=== PATIENT | female | born 1975 | race Caucasian/White ===

== ENCOUNTER 2022-06-03 13:05 | Emergency (ER) | payer BC, SELFPAY ==
[2022-06-03 13:19] VITALS: BP 130/78; PULSE 99; RESP 18; TEMP 37.2; O2SAT 99; BMI 28.3
--- NOTE | 2022-06-03 13:40 | XR_ITS ---
Patient: ERICK GRADY Facility:?[facility] Patient ID:?[id number] Site Patient ID:?[id number]. Site :?[id number] Study:?XRay-Extremity Right GREAT TOE-06/03/2022 1:51:58 PM Ordering Physician:Hany White Final Report: INDICATION: Crush injury of right great toe. Log fell on it. TECHNIQUE: Three views of the right great toe COMPARISON: None FINDINGS: Bones: There is a somewhat irregular appearance of the tuft of the 1st distal phalanx, however no discrete fracture is identified. Alignment is normal. Joint spaces: Unremarkable. Soft tissues: Unremarkable. IMPRESSION: No definite fractures seen. Dictated by Jake Krueger MD @ 06/03/2022 2:20:23 PM Signed by:?Jake Krueger MD @06/03/2022 2:20:23 PM (Electronic Signature)
--- NOTE | 2022-06-03 13:45 | ED_ITS ---
HPI - General Adult General Date Seen: 06/03/22 Chief complaint: Extremity Pain/Injury, Lower Stated complaint: Smashed RT foot Time Seen by Provider: 06/03/22 13:30 Source: patient History of Present Illness HPI narrative: Patient is a 47-year-old woman seen today for pain in her right great toe. She says she dropped a log on it yesterday and thought she could tough it out but it has continued to hurt. The toenail has turned dark purple and is throbbing. She is able to walk on her heel but is not able to put any pressure on the toe. The toe itself is a little bit reddish and slightly swollen. Foot otherwise is non painful. No other injuries or complaints. Related Data Home Medications Medication Instructions Recorded Confirmed paroxetine HCl 20 mg tablet 20 mg PO DAILY 06/03/22 06/03/22 Allergies Allergy/AdvReac Type Severity Reaction Status Date / Time No Known Drug Allergies Allergy Verified 06/03/22 13:22 [facility] Medical History (Updated 06/03/22 @ 14:13 by Gudelia Haas RN) No significant past medical history Social History Smoking Status: Never smoker How often do you have a drink containing alcohol: never AUDIT-C Alcohol total score: 0 Non-prescribed substance use: denies use Exam Narrative: Exam Narrative: In general, an alert, nontoxic woman. Head: Normocephalic, atraumatic. Neck: Supple. Extremities: Examination of the right foot shows a subungual hematoma of the great toenail involving about half the nail. There is a little bit of erythema of the distal portion of the great toe and some tenderness to palpation, no significant edema. No warmth. Remainder of the great toe as well as the foot is normal in appearance, atraumatic. Skin: Warm dry well perfused. Neurologic: Alert, conversant. Const: Vital Signs, click to edit/add: Vital Signs - 24 hr 06/03/22 13:19 Temperature 99 F Pulse Rate [Pulse Oximeter] 99 Respiratory Rate 18 Blood Pressure [Ri ght Upper Arm] 130/78 Pulse Oximetry 99 Oxygen Delivery Me thod Room Air Documenting provider has reviewed patient's vital signs: yes Course Course Hospital Course: I trephinated the great toe with cautery which improved her pain. A bandage was applied. X-rays of the right great toe by my review are negative. She is given a hard sole shoe for comfort. Vital Signs Vital signs: Initial Vital Signs Temperature 99 F 06/03/22 13:19 Temperature Source Temporal Artery Scan 06/03/22 13:19 Pulse Rate 99 06/03/22 13:19 Respiratory Rate 18 06/03/22 13:19 Blood Pressure 130/78 06/03/22 13:19 Blood Pressure Mean 95 06/03/22 13:19 Blood Pressure Position Supine 06/03/22 13:19 Pulse Oximetry 99 06/03/22 13:19 Oxygen Delivery Method 06/03/22 13:19 Vital Signs Temperature 99 F 06/03/22 13:19 Pulse Rate 99 06/03/22 13:19 Respiratory Rate 18 06/03/22 13:19 Blood Pressure 130/78 06/03/22 13:19 Pulse Oximetry 99 06/03/22 13:19 Oxygen Delivery Method 06/03/22 13:19 Temperature 99 F 06/03/22 13:19 Pulse Rate 99 06/03/22 13:19 Respiratory Rate 18 06/03/22 13:19 Blood Pressure 130/78 06/03/22 13:19 Pulse Oximetry 99 06/03/22 13:19 Oxygen Delivery Method 06/03/22 13:19 Discharge Plan Discharge Clinical Impression: Subungual hematoma of great toe of right foot Patient Disposition: Home, Self-Care Condition: Improved Instructions: Subungual Hematoma (ED) Prescriptions: No Action paroxetine HCl 20 mg tablet 20 mg PO DAILY Stand Alone Forms: MyHealth Info Instructions
== END 2022-06-03 14:11 | disposition home or self-care (01) ==
PROVIDERS: Emergency Provider Emergency Medicine
DX: S90.211A Contusion of right great toe with damage to nail, initial encounter (principal); S97.111A Crushing injury of right great toe, initial encounter; W23.1XXA Caught, crushed, jammed, or pinched between stationary objects, initial encounter; Y93.9 Activity, unspecified; Y92.9 Unspecified place or not applicable; Y99.9 Unspecified external cause status
CPT/HCPCS: 11740; 73660; 99282; 99283